=== PATIENT | male | born 1995 | race Caucasian/White ===

== ENCOUNTER 2024-12-16 14:53 | Emergency (ER) | payer SELFPAY ==
[2024-12-16] VITALS (8 sets, daily range): BP systolic 113–142; BP diastolic 74–95; PULSE 88–99; RESP 16; TEMP 36.9; O2SAT 93–100; BMI 22.4
--- NOTE | 2024-12-16 16:25 | CTR_ITS ---
PROCEDURE INFORMATION: Exam: CT Right Upper Extremity With Contrast, Hand Exam date and time: 12/16/2024 5:14 PM Age: 28 years old Clinical indication: Pain and injury or trauma; Blunt trauma (contusions or hematomas) and laceration and swelling (edema); Hand; Right; Additional info: Abscess palmar hand; Purulent drainage; Edema TECHNIQUE: Imaging protocol: Computed tomography of the right upper extremity with contrast. Exam focused on the hand. Radiation optimization: All CT scans at this facility use at least one of these dose optimization techniques: automated exposure control; mA and/or kV adjustment per patient size (includes targeted exams where dose is matched to clinical indication); or iterative reconstruction. Contrast material: OMNIPAQUE 350; Contrast volume: 100 ml; Contrast route: INTRAVENOUS (IV); COMPARISON: No relevant prior studies available. RADIATION DOSE METRICS: Total DLP (mGy-cm): 131.68 FINDINGS: Bones/joints: No discrete bony cortical margin abnormalities can be appreciated. Bony cortical margins and articulations appear to be relatively intact. Tendon anatomy of the hand CT axial hand anatomy tendon anatomy of the hand. Soft tissues: Axial images 64 through 66 of series 5 and coronal image 21 of series 7 best demonstrate an ovoid/bilobed fluid collection consistent with an abscess. This measures 0.8 x 0.9 x 1.4 cm in the CC, AP and transverse dimensions, respectively. Slight marginal enhancement is seen here. Marked generalized soft tissue swelling is noted along the palmar aspect about this region centering at the level of the 3rd or middle finger MCP joint area. Edema extends up to with inflammatory changes appearing to involve the digital flexor tendon/sheath of the 3rd or middle finger digit. Also observed is a drainage sites suspected along the palmar aspect of the hand as observed on image [address]/CT hand RT w con [id number] IMPRESSION: 1. Prominent deep palmar/anterior abscess with marked associated edema and suspected involvement of the flexor digitorum sheath/tendon of the 3rd/middle finger digit centering at the MCP joint level. 2. No evidence of radiopaque foreign body. 3. MCP joint involvement can not be excluded and if further discrimination is needed an MRI with contrast is suggested when feasible. 4. No CT identifiable evidence of osteomyelitis on this study.
--- NOTE | 2024-12-16 16:26 | ED_ITS ---
Documented by User: EVANGELINA Vela 12/19/24 12:16 HPI - Skin/Abscess/Foreign Bdy 2 General: Chief complaint: Skin/Abscess/Foreign Body Stated complaint: right hand injury/swelling Time Seen by Provider: 12/16/24 14:57 Source: patient Mode of arrival: ambulatory Limitations: no limitations History of Present Illness: Patient is a 28-year-old male here for evaluation of an infection and abscess involving his right hand. Patient states a few weeks ago he sustained a mild abrasion to the palmar aspect of his right hand after using a kitchen utensil to attempt to stab a mouse in his kitchen. He states area seem to be healing well until recently when he began noticing edema, redness, warmth, pain, and purulent drainage coming from the wound. No systemic symptoms. He is right-hand dominant. MD complaint: abscess/boil Onset (ago): day(s) Tetanus up to date: unsure Location: R hand Severity: moderate Pain Consistency: constant Relieving factors: none Exacerbating factors: palpation and other (ROM) Associated symptoms: Reports no associated symptoms; Deny chills, fever(s), nausea or vomiting Treatments prior to arrival: attempted to drain pus at home Related Data Allergies Allergy/AdvReac Type Severity Reaction Status Date / Time No Known Allergies Allergy Verified 12/16/24 15:02 Review of Systems 2 Const: Denies: fever(s), chills, body aches, fatigue or malaise GI: Denies: nausea or vomiting Musc: Reports: extremity pain (R hand) and extremity swelling (R hand) Skin/Breast: Reports: other (abscess palmar R hand) Neuro: Denies: numbness in extremities or sensory changes Physical Exam 2 Const: COMMON NORMALS: no acute distress, average body habitus, no limitations, healthy appearing, alert and well nourished GENERAL APPEARANCE: cooperative Resp: COMMON NORMALS: normal respiratory effort and clear to auscultation bilaterally AUSCULTATION: clear to auscultation bilaterally Cardio: COMMON NORMALS: regular rate and regular rhythm RATE: regular rate RHYTHM: regular rhythm Extremity: COMMON NORMALS: capillary refill normal GENERAL: Yes normal exam except as noted RIGHT UPPER EXTREMITY: Yes hand & digits (abscess palmar R hand; purulent material expressed with palpation) Right hand and digits: Yes inspection (edema/erythema involving R hand dorsally and palmar surface), Yes ROM exam (ROM of digits not out of proportion) and Yes neurovascular exam (normal) OTHER: Neuro: COMMON NORMALS: moves all extremities, no focal motor deficits and no sensory deficits noted SENSORIUM/ORIENTATION: Yes alert Skin: NARRATIVE SKIN EXAM: R hand palmar abscess; see above Course 2 ED course: Care transferred to Kasia Husain PA-C at shift change. CT pending. I have already spoken to ortho here based on clinical findings and he is recommending hand surgery consult. ES Consultations: Consultation #1: Dr. Hoffman-reviewed clinical images; felt this most likely would require hand surgery consultation Vital Signs: Vital signs: Vital Signs Temperature 98.4 F 12/16/24 14:58 Pulse Rate 88 12/16/24 21:01 Respiratory Rate 16 12/16/24 14:58 Blood Pressure 125/75 12/16/24 21:01 Pulse Oximetry 96 12/16/24 21:01 Oxygen Delivery Me thod Room Air 12/16/24 20:00 MDM - Skin/Abscess/Foreign Bdy Lab Data 12/16/24 16:40 12/16/24 16:[address] 12/16/24 16:25 IMPRESSION: 1. Prominent deep palmar/anterior abscess with marked associated edema and suspected involvement of the flexor digitorum sheath/tendon of the 3rd/middle finger digit centering at the MCP joint level. 2. No evidence of radiopaque foreign body. 3. MCP joint involvement can not be excluded and if further discrimination is needed an MRI with contrast is suggested when feasible. 4. No CT identifiable evidence of osteomyelitis on this study. Laboratory Results WBC 11.95 10^3/uL (3.29-11.43) H 12/16/24 16:40 RBC 4.77 10^6/uL (3.85-5.65) 12/16/24 16:40 Hgb 14.20 g/dL (11.27-16.99) 12/16/24 16:40 Hct 43.3 % (37-53) 12/16/24 16:40 MCV 90.8 fl (82-101) 12/16/24 16:40 MCH 29.8 pg (27-33) 12/16/24 16:40 MCHC 32.8 g/dL (30-55) 12/16/24 16:40 RDW 12.3 % (12.1-15.1) 12/16/24 16:40 Plt Count 210 10^3/cmm (157-399) 12/16/24 16:40 MPV 10.9 fL (7.4-10.4) H 12/16/24 16:40 Neut % (Auto) 66.2 % 12/16/24 16:40 Lymph % (Auto) 20.0 % 12/16/24 16:40 [place] % (Auto) 6.4 % 12/16/24 16:40 Eos % (Auto) 6.6 % 12/16/24 16:40 Baso % (Auto) 0.5 % 12/16/24 16:40 Neut # (Auto) 7.90 10^3/uL (1.8-7.7) H 12/16/24 16:40 Lymph # (Auto) 2.4 10^3/uL (0.8-4.8) 12/16/24 16:40 [place] # (Auto) 0.8 10^3/uL (0.2-0.9) 12/16/24 16:40 Eos # (Auto) 0.8 10^3/uL (0.0-0.8) 12/16/24 16:40 Baso # (Auto) 0.1 10^3/uL (0.0-0.1) 12/16/24 16:40 Nucleated RBC % (auto) 0 % 12/16/24 16:40 Nucleated RBCs # 0.0 /100WBC 12/16/24 16:40 Sodium 141 mmol/L (136-145) 12/16/24 16:40 Potassium 4.2 mmol/L (3.5-5.1) 12/16/24 16:40 Chloride 102 mmol/L (98-107) 12/16/24 16:40 Carbon Dioxide 27 mmol/L (22-29) 12/16/24 16:40 Anion Gap 16.2 (5-19) 12/16/24 16:40 BUN 8 mg/dL (6-20) 12/16/24 16:40 Creatinine 0.7 mg/dL (0.7-1.2) 12/16/24 16:40 GFR Calculation 133.3 mL/min (90-130) H 12/16/24 16:40 Glucose 90 mg/dL (65-115) 12/16/24 16:40 Calculated Osmolality 290 mOsm/kg (285-295) 12/16/24 16:40 Calcium 9.1 mg/dL (8.5-10.5) 12/16/24 16:40 Total Bilirubin 0.8 mg/dL (0.15-1.2) 12/16/24 16:40 AST 14 U/L (0-40) 12/16/24 16:40 ALT 11 U/L (0-41) 12/16/24 16:40 Alkaline Phosphatase 107 U/L (40-130) 12/16/24 16:40 C-Reactive Protein 38.9 mg/L (0.0-4.9) H 12/16/24 16:40 Total Protein 7.3 g/dL (6.6-8.7) 12/16/24 16:40 Albumin 4.4 g/dL (3.5-5.2) 12/16/24 16:40 Globulin 2.9 g/dL (1.3-4.6) 12/16/24 16:40 Discharge Plan Discharge Patient Disposition: Xfer Short-Term Hosp Clinical Impression: Tenosynovitis of right hand Condition: Stable Referrals: Demarcus Pelletier MD [Family Provider, [facility]] Discharge Diet: As Directed Discharge Activity: Limit activity as instructed Print Language: Bruneian Coding Level of Care Code ED [employer] Fwd Documented by User: EVANGELINA Cummings 12/17/24 13:00 HPI - Skin/Abscess/Foreign Bdy 2 General: Chief complaint: Skin/Abscess/Foreign Body Stated complaint: right hand injury/swelling Time Seen by Provider: 12/16/24 14:57 Related Data Allergies Allergy/AdvReac Type Severity Reaction Status Date / Time No Known Allergies Allergy Verified 12/16/24 15:02 Course 2 Consultations: Consultation #2: Dr. Latham-Hand surgeon at [facility]- will d/w Dr. Hoffman. Consultation #3: Dr. Hoffman called-this appears too extensive for orthopedic given the compartment of the hand, location, and association of tenosynovitis. Dr. Thompson hand surgeon in [place] will accept the patient. Vital Signs: Vital signs: Vital Signs Temperature 98.4 F 12/16/24 14:58 Pulse Rate 88 12/16/24 21:01 Respiratory Rate 16 12/16/24 14:58 Blood Pressure 125/75 12/16/24 21:01 Pulse Oximetry 96 12/16/24 21:01 Oxygen Delivery Me thod Room Air 12/16/24 20:00 MDM - Skin/Abscess/Foreign Bdy Medicial Decision Making Patient was turned over to me by previous colleague/PA. Discussed with the patient at bedside, apparently the flexible knife he utilized to gather icing out of a bowl, then saw a mouse, went to stab the mouse with the flexible knife, against the back of the kitchen counter, the knife flexed around and caused a laceration in his mid distal palmar surface. This was initially fine, and patient noted over the last 4-5 days redness, abscess, and attempted to manipulate with large amount of purulent production. CT shows palmar abscess with marked associated edema and involvement of flexor digitorum sheath/tendon in the third/middle finger. Discussed with coordinator, will attempt to contact hand surgeon for transfer for I/D since this is involving the sheath/tendon. No MRI capabilities here at this time, however this is not necessary at this time. Lab Data 12/16/24 16:40 12/16/24 16:[address] 12/16/24 16:25 IMPRESSION: 1. Prominent deep palmar/anterior abscess with marked associated edema and suspected involvement of the flexor digitorum sheath/tendon of the 3rd/middle finger digit centering at the MCP joint level. 2. No evidence of radiopaque foreign body. 3. MCP joint involvement can not be excluded and if further discrimination is needed an MRI with contrast is suggested when feasible. 4. No CT identifiable evidence of osteomyelitis on this study. Laboratory Results WBC 11.95 10^3/uL (3.29-11.43) H 12/16/24 16:40 RBC 4.77 10^6/uL (3.85-5.65) 12/16/24 16:40 Hgb 14.20 g/dL (11.27-16.99) 12/16/24 16:40 Hct 43.3 % (37-53) 12/16/24 16:40 MCV 90.8 fl (82-101) 12/16/24 16:40 MCH 29.8 pg (27-33) 12/16/24 16:40 MCHC 32.8 g/dL (30-55) 12/16/24 16:40 RDW 12.3 % (12.1-15.1) 12/16/24 16:40 Plt Count 210 10^3/cmm (157-399) 12/16/24 16:40 MPV 10.9 fL (7.4-10.4) H 12/16/24 16:40 Neut % (Auto) 66.2 % 12/16/24 16:40 Lymph % (Auto) 20.0 % 12/16/24 16:40 [place] % (Auto) 6.4 % 12/16/24 16:40 Eos % (Auto) 6.6 % 12/16/24 16:40 Baso % (Auto) 0.5 % 12/16/24 16:40 Neut # (Auto) 7.90 10^3/uL (1.8-7.7) H 12/16/24 16:40 Lymph # (Auto) 2.4 10^3/uL (0.8-4.8) 12/16/24 16:40 [place] # (Auto) 0.8 10^3/uL (0.2-0.9) 12/16/24 16:40 Eos # (Auto) 0.8 10^3/uL (0.0-0.8) 12/16/24 16:40 Baso # (Auto) 0.1 10^3/uL (0.0-0.1) 12/16/24 16:40 Nucleated RBC % (auto) 0 % 12/16/24 16:40 Nucleated RBCs # 0.0 /100WBC 12/16/24 16:40 Sodium 141 mmol/L (136-145) 12/16/24 16:40 Potassium 4.2 mmol/L (3.5-5.1) 12/16/24 16:40 Chloride 102 mmol/L (98-107) 12/16/24 16:40 Carbon Dioxide 27 mmol/L (22-29) 12/16/24 16:40 Anion Gap 16.2 (5-19) 12/16/24 16:40 BUN 8 mg/dL (6-20) 12/16/24 16:40 Creatinine 0.7 mg/dL (0.7-1.2) 12/16/24 16:40 GFR Calculation 133.3 mL/min (90-130) H 12/16/24 16:40 Glucose 90 mg/dL (65-115) 12/16/24 16:40 Calculated Osmolality 290 mOsm/kg (285-295) 12/16/24 16:40 Calcium 9.1 mg/dL (8.5-10.5) 12/16/24 16:40 Total Bilirubin 0.8 mg/dL (0.15-1.2) 12/16/24 16:40 AST 14 U/L (0-40) 12/16/24 16:40 ALT 11 U/L (0-41) 12/16/24 16:40 Alkaline Phosphatase 107 U/L (40-130) 12/16/24 16:40 C-Reactive Protein 38.9 mg/L (0.0-4.9) H 12/16/24 16:40 Total Protein 7.3 g/dL (6.6-8.7) 12/16/24 16:40 Albumin 4.4 g/dL (3.5-5.2) 12/16/24 16:40 Globulin 2.9 g/dL (1.3-4.6) 12/16/24 16:40 All radiology interpretation(s) finalized by discharge ED provider radiology interpretation(s): see ct report Discharge Plan Discharge Patient Disposition: Xfer Short-Term Hosp Clinical Impression: Tenosynovitis of right hand Condition: Stable Referrals: Demarcus Pelletier MD [Family Provider, Family Practice] Discharge Diet: As Directed Discharge Activity: Limit activity as instructed Print Language: Bruneian Coding Level of Care Code ED [employer] for [place]
[2024-12-16] MEDS: tetanus-dipt-pertussis 0.5 mL SDV IM (16:50)
[2024-12-16] MEDS: VANCOMYCIN ADD-Vantage 1,000 MG in 0.9% NaCl ADD-Vantage 250 ML 250 MG IV (16:51)
[2024-12-16 16:52] LABS: Basophils # 0.1 10^3/uL (0.0-0.1); Basophils % 0.5 %; Eosinophils # 0.8 10^3/uL (0.0-0.8); Eosinophils % 6.6 %; Hematocrit 43.3 % (37-53); Lymphocytes # 2.4 10^3/uL (0.8-4.8); Mean Corpuscular HGB Conc 32.8 g/dL (30-55); Mean Corpuscular Hemoglobin 29.8 pg (27-33); Mean Corpuscular Volume 90.8 fl (82-101); Mean Platelet Volume 10.9 fL (7.4-10.4); Monocytes # 0.8 10^3/uL (0.2-0.9); Monocytes % 6.4 %; Neutrophils % 66.2 %; Nucleated Red Blood Cells % 0 %; Platelet Count 210 10^3/cmm (157-399); Red Blood Count 4.77 10^6/uL (3.85-5.65); Red Cell Distribution Width 12.3 % (12.1-15.1); White Blood Count 11.95 10^3/uL (3.29-11.43)
[2024-12-16 17:13] LABS: Alanine Aminotransferase 11 U/L (0-41); Albumin Level 4.4 g/dL (3.5-5.2); Alkaline Phosphatase 107 U/L (40-130); Aspartate Amino Transferase 14 U/L (0-40); Blood Urea Nitrogen 8 mg/dL (6-20); C Reactive Protein 38.9 mg/L (0.0-4.9); Calcium 9.1 mg/dL (8.5-10.5); Carbon Dioxide 27 mmol/L (22-29); Chloride 102 mmol/L (98-107); Creatinine Clr Calc Pharmacy 173.5133; Globulin 2.9 g/dL (1.3-4.6); Glomerular Filtration Rate 133.3 mL/min (90-130); Glucose 90 mg/dL (65-115); Osmolality Calculated 290 mOsm/kg (285-295); Sodium 141 mmol/L (136-145); Total Bilirubin 0.8 mg/dL (0.15-1.2); Total Protein 7.3 g/dL (6.6-8.7)
[2024-12-16 17:19] LABS: Anion Gap 16.2 (5-19); Potassium 4.2 mmol/L (3.5-5.1)
[2024-12-16] MEDS: iohexol 350 mg/mL 500 mL Btl (per mL) IV (17:26)
[2024-12-16] MEDS: HYDROcodone-acetaminophen 10-325 mg Tablet 1 TAB PO (18:22)
--- NOTE | 2024-12-16 20:06 | PC.NURSE ---
pt report called to Jenny Orozco RN at [facility].
== END 2024-12-16 21:03 | disposition short-term general hospital (02) ==
PROVIDERS: Emergency Provider Physician Assistant; Family Provider Family Medicine
DX: M65.941 Unspecified synovitis and tenosynovitis, right hand (principal)
CPT/HCPCS: 36415; 73201; 80053; 85025; 86140; 87040; 87070; 87075; 87077; 87186; 87205; 90471; 90715; 96365; 99285; J3370; J7050; J9999